=== PATIENT | male | born 2000 | race Caucasian/White ===

== ENCOUNTER 2023-01-17 11:52 | Emergency (ER) | payer BC ==
[~2023-01-17] VITALS: Ht 175.3 cm; Wt 70.3 kg
[2023-01-17 12:46] VITALS: BP 131/71
== END 2023-01-17 12:47 | disposition home or self-care (01) ==
LOC: ER 11:52
DX: R33.9 Retention of urine, unspecified (principal)
CPT/HCPCS: A4663